=== PATIENT | female | born 1995 | race Caucasian/White ===

== ENCOUNTER 2016-12-03 02:16 | Emergency (ER) | payer OTHER ==
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
[2016-12-03 01:44] LABS: BASOPHIL# 0.1 X10e3 (0-0.3); EOSINOPHIL# 0.2 X10e3 (0-0.7); EOSINOPHIL% 2.4 % (0.0-7.0); HEMATOCRIT 42.9 % (35.0-45.0); HEMOGLOBIN 14.4 gm/dL (12.0-16.0); LYMPHOCYTE# 4.4 X10e3 (1.0-3.5); LYMPHOCYTE% 44.9 % (17.0-45.0); MEAN CELL VOLUME 101.5 FL (83-96); MEAN CORPUSCULAR HEMOGLOBIN 34.2 PG (28-34); MEAN CORPUSCULAR HGB CONC 33.7 g/dL (30-36); MEAN PLATELET VOLUME 8.2 FL (6.5-11.5); MONOCYTE# 0.7 X10e3 (0-1.0); MONOCYTE% 6.7 % (3.0-12.0); NEUTROPHIL# 4.5 X10e3 (1.5-7.1); PLATELET COUNT 387 X10e3 (140-420); RED BLOOD COUNT 4.23 X10e (3.90-5.30); RED CELL DISTRIBUTION WIDTH 14.3 % (11.0-15.5); WHITE BLOOD COUNT 9.9 X10e3 (4.0-10.5)
[2016-12-03 01:53] LABS: DIFF IND NO
[2016-12-03 02:03] LABS: BUN/CREATININE RATIO 8.33; CALCIUM SERUM 8.9 mg/dL (8.4-10.2); CREATININE SERUM 0.6 mg/dL (0.6-1.4); GLOM FILT RATE Estimated 128.5 mL/min (>60); POTASSIUM 3.5 mmol/L (3.5-5.1)
[2016-12-03 02:06] LABS: AMPHETAMINE NEG (NEG); BARBITURATES NEG (NEG); BENZODIAZEPINES NEG (NEG); COCAINE NEG (NEG); MARIJUANA POS (NEG); OPIATES NEG (NEG); TRICYCLIC ANTIDEPRESSANTS NEG (NEG); U METHADONE NEG (NEG)
[~2016-12-03 02:16] MED LIST: ADVAIR 1001 DISK W/D PO; ADVAIR 250-501 EACH IH; ALBUTEROL SULF8.5 G1 INH; ALBUTEROL17 GM; ALBUTEROL17 GM INH; ALBUTEROL20 ml INH; AMOXICILLIN875 MG PO; BACTRIM DS TABL1 TAB PO; CIPRO PO; CONCERTA PO; DEPO SHOT; ELIDEL100 GM TOP; EPIPEN0.3 MG/0.1 IM; EPIPEN0.3 MG/0.3 INJ; FLAGYL PO; FLEXERIL PO; IBUPROFEN PO; LORTAB 5-325 M1 EACH PO; LOTRIMIN 1% CR30 GM TOP; MEDROL DOSEPAK4 MG; MOBIC PO; NAMENDA10 MG PO; NO MEDICATIONS; ORTHO TRI-7 DAYSX 3 PO; PEPCID AC20 M2 PO; PHENERGAN PO; PHENERGAN25 M1 PO; PREDNISONE PO; PREDNISONE1 MG PO; PREDNISONE10 MG/DOSE PO; PREDNISONE50 MG PO; PROVENTIL0.83 MG/ML IH; PYRIDIUM PO; ULTRAM PO; ZITHROMAX PO; [UNRECOGNIZED DRUG - OTHER]
== END 2016-12-03 03:55 | disposition home or self-care (01) ==
LOC: CED 02:16
PROVIDERS: Student in an Organized Health Care Education/Training Program
DX: S09.90XA Unspecified injury of head, initial encounter (principal); S80.211A Abrasion, right knee, initial encounter; F10.129 Alcohol abuse with intoxication, unspecified; F12.10 Cannabis abuse, uncomplicated; J45.909 Unspecified asthma, uncomplicated; F17.200 Nicotine dependence, unspecified, uncomplicated; Z98.890 Other specified postprocedural states; Z91.010 Allergy to peanuts; Z79.899 Other long term (current) drug therapy; Y04.0XXA Assault by unarmed brawl or fight, initial encounter; Y92.9 Unspecified place or not applicable
CPT/HCPCS: 36415; 70450; 73560; 80048; 80307; 84703; 85025; 96361; 96374; 99284; G0480; J2060